=== PATIENT | male | born 1965 | race Caucasian/White ===

== ENCOUNTER 2018-04-16 23:29 | Emergency (ER) | payer OTHER ==
[2018-04-16] MEDS ORDERED: DOXYCYCLINE 100 MG CAP PO ONE (23:53)
[2018-04-16] MEDS ORDERED: TETANUS & DIPHTHERIA TOX,ADULT 0.5 ML VIAL ONE (23:54)
[2018-04-16] MEDS ORDERED: SMZ./TMP. 800/160 MG TABLET ONE (23:56)
--- NOTE | 2018-04-16 23:56 | ER ---
Nurse's Notes [facility] Name: Silvestre Jha Age: 53 yrs Sex: Male : 1965 Arrival Date: 04/16/2018 Time: 23:33 Bed 20 Private MD: Diagnosis: Cellulitis of left lower limb-Left Ankle Presentation: 04/16 23:42 Presenting complaint: Patient states: I was fishing this week and a fish jumped in the tl2 boat and the hook scraped my left foot. I noticed some redness and swelling yesterday. Denies fever. Slight redness on lateral side of left ankle and mild swelling noted. Transition of care: patient was not received from another setting of care. Onset of symptoms was April 15, 2018 at 00:00. Risk Assessment: Do you want to hurt yourself or someone else?. Risk Assessment: Do you want to hurt yourself or someone else? Patient reports no desire to harm self or others. Initial Sepsis Screen: Does the patient meet any 2 criteria? No. Patient's initial sepsis screen is negative. Does the patient have a suspected source of infection? No. Patient's initial sepsis screen is negative. Care prior to arrival: None. 23:42 Method Of Arrival: Ambulatory tl2 23:42 Acuity: LAURA 3 tl2 Historical: - Allergies: 23:44 No Known Allergies; tl2 - Home Meds: 23:44 Synthroid Oral [Active]; tl2 - PMHx: 23:44 Hypothyroidism; tl2 - PSHx: 23:44 Thyroidectomy; tl2 - Immunization history:: Adult Immunizations up to date, Last tetanus immunization: unknown. - Social history:: Smoking status: Patient/guardian denies using tobacco. - Ebola Screening: : No symptoms or risks identified at this time. Screenin:45 Abuse screen: Denies threats or abuse. Nutritional screening: No deficits noted. jd3 Tuberculosis screening: No symptoms or risk factors identified. Fall Risk Ambulatory Aid- None/Bed Rest/Nurse Assist (0 pts). Gait- Normal/Bed Rest/Wheelchair (0 pts) Mental Status- Oriented to own ability (0 pts). Total Stinson Fall Scale indicates No Risk (0-24 pts). Assessment: 23:43 General: Appears in no apparent distress. uncomfortable, Behavior is calm, cooperative, jd3 appropriate for age. Pain: Complains of pain in left ankle Quality of pain is described as aching. Neuro: Level of Consciousness is awake, alert, obeys commands, Oriented to person, place, time, situation, Appropriate for age. Cardiovascular: Capillary refill < 3 seconds Patient's skin is warm and dry. Respiratory: Airway is patent Respiratory effort is even, unlabored, Respiratory pattern is regular, symmetrical. GI: No signs and/or symptoms were reported involving the gastrointestinal system. Abdomen is round non-distended. : No signs and/or symptoms were reported regarding the genitourinary system. EENT: No signs and/or symptoms were reported regarding the EENT system. Derm: Skin is intact, Skin is dry, Skin is normal, Skin temperature is warm. Musculoskeletal: Circulation, motion, and sensation intact. Range of motion: intact in all extremities. Injury Description: Abrasion sustained to left ankle is scabbed. 04/17 00:09 Reassessment: Patient appears in no apparent distress at this time. Patient and/or jd3 family updated on plan of care and expected duration. Pain level reassessed. Patient is alert, oriented x 3, equal unlabored respirations, skin warm/dry/pink. Vital Signs: 04/16 23:44 BP 166 / 109; Pulse 81; Resp 18; Temp 98; Pulse Ox 97% on R/A; Weight 117.93 kg; Height tl2 6 ft. 1 in. (185.42 cm); Pain 7/10; 23:44 Body Mass Index 34.30 (117.93 kg, 185.42 cm) tl2 ED Course: 23:33 Patient arrived in ED. am2 23:38 Harry Mooney, JONY is Primary Nurse. jd3 23:39 Christo Duffy PA is PHCP. cp 23:39 Cosmo Parker MD is Attending Physician. cp 23:44 Triage completed. tl2 23:45 Patient has correct armband on for positive identification. Bed in low position. Call jd3 light in reach. Side rails up X 1. 23:45 Arm band placed on. jd3 04/17 00:09 No provider procedures requiring assistance completed. Patient did not have IV access jd3 during this emergency room visit. Administered Medications: 04/16 23:54 Drug: Doxycycline 100 mg Route: PO; jd3 04/17 00:10 Follow up: Response: No adverse reaction d3 04/16 23:54 Drug: Tetanus-Diphtheria Toxoid Adult 0.5 ml {[employer] Specialist: [employer]. Exp: jd3 04/23/2020. Lot #: [id number]. } Route: IM; Site: left deltoid; 04/17 00:10 Follow up: Response: No adverse reaction jd3 04/16 23:54 Drug: Bactrim (160 mg-800 mg (DS) 1 tablet Route: PO; jd3 04/17 00:10 Follow up: Response: No adverse reaction jd3 Outcome: 04/16 23:55 Discharge ordered by MD. ogden 04/17 00:09 Discharged to home ambulatory. jd3 Condition: stable Discharge instructions given to patient, Instructed on discharge instructions, follow up and referral plans. medication usage, Demonstrated understanding of instructions, follow-up care, medications, Prescriptions given X 2. 00:10 Patient left the ED. jd3 Signatures: Christo Duffy PA PA cp Knox, Taylor, RN RN tl2 Deanna Alonso Jonathon, RN RN jd3
--- NOTE | 2018-04-16 23:56 | EDPHYS ---
Physician Documentation [facility] Name: Silvestre Jha Age: 53 yrs Sex: Male : 1965 Arrival Date: 04/16/2018 Time: 23:33 Bed 20 Private MD: ED Physician Cosmo Parker HPI: 04/16 23:45 This 53 yrs old Male presents to ER via Ambulatory with complaints of Ankle cp Injury. 23:45 The patient presents with swelling, tenderness, erythema. The complaints affect the cp lateral aspect left ankle. Onset: The symptoms/episode began/occurred today. Context: patient reports he was fishing 2 days ago when hooked fish struck left ankle. Patient reports noticing redness today and increased swelling over past 2 days. Historical: - Allergies: 23:44 No Known Allergies; tl2 - Home Meds: 23:44 Synthroid Oral [Active]; tl2 - PMHx: 23:44 Hypothyroidism; tl2 - PSHx: 23:44 Thyroidectomy; tl2 - Immunization history:: Adult Immunizations up to date, Last tetanus immunization: unknown. - Social history:: Smoking status: Patient/guardian denies using tobacco. - Ebola Screening: : No symptoms or risks identified at this time. ROS: 23:49 Eyes: Negative for injury, pain, redness, and discharge. cp 23:49 Constitutional: Negative for body aches, chills, fever, poor PO intake. 23:49 Cardiovascular: Negative for chest pain, palpitations. 23:49 Respiratory: Negative for cough, shortness of breath, wheezing. 23:49 Abdomen/GI: Negative for abdominal pain, nausea, vomiting, and diarrhea. 23:49 Skin: Positive for erythema, swelling, of the lateral aspect left ankle. 23:49 All other systems are negative. Exam: 23:50 Head/Face: Normocephalic, atraumatic. cp 23:50 Constitutional: The patient appears in no acute distress, alert, awake, non-toxic, well developed, well nourished. 23:50 Eyes: Periorbital structures: appear normal, Conjunctiva: normal, no exudate, no injection, Lids and lashes: appear normal, bilaterally. 23:50 ENT: External ear(s): are unremarkable, Nose: is normal, Mouth: is normal, Posterior pharynx: is normal, airway is patent. 23:50 Chest/axilla: Inspection: normal. 23:50 Cardiovascular: Rate: normal, Rhythm: regular. 23:50 Respiratory: the patient does not display signs of respiratory distress, Respirations: normal, no use of accessory muscles, no retractions, no splinting, no tachypnea, labored breathing, is not present. 23:50 Abdomen/GI: Exam negative for discomfort, distension, guarding, Inspection: abdomen appears normal. 23:50 Skin: cellulitis, that is mild, well demarcated, on the lateral aspect left ankle. Vital Signs: 23:44 BP 166 / 109; Pulse 81; Resp 18; Temp 98; Pulse Ox 97% on R/A; Weight 117.93 kg; Height tl2 6 ft. 1 in. (185.42 cm); Pain 7/10; 23:44 Body Mass Index 34.30 (117.93 kg, 185.42 cm) tl2 MDM: 23:39 Patient medically screened. cp 23:45 Differential diagnosis: cellulitis, abscess. cp 23:55 Data reviewed: vital signs, nurses notes, and as a result, I will discharge patient. cp Administered Medications: 23:54 Drug: Doxycycline 100 mg Route: PO; jd3 04/17 00:10 Follow up: Response: No adverse reaction jd3 04/16 23:54 Drug: Tetanus-Diphtheria Toxoid Adult 0.5 ml {[employer] Helper: [employer]. Exp: jd3 04/23/2020. Lot #: [id number]. } Route: IM; Site: left deltoid; 04/17 00:10 Follow up: Response: No adverse reaction jd3 04/16 23:54 Drug: Bactrim (160 mg-800 mg (DS) 1 tablet Route: PO; jd3 04/17 00:10 Follow up: Response: No adverse reaction jd3 Disposition: 23:20 Co-signature as Attending Physician, Cosmo Parker MD Available for consultation at ps1 all times. . Disposition: 04/16/18 23:55 Discharged to Home. Impression: Cellulitis of left lower limb - Left Ankle. - Condition is Stable. - Discharge Instructions: Cellulitis, Adult. - Prescriptions for Bactrim DS 800- 160 mg Oral Tablet - take 1 tablet by ORAL route every 12 hours for 10 days; 20 tablet. Doxycycline Monohydrate 100 mg Oral Tablet - take 1 tablet by ORAL route every 12 hours for 10 days; 20 tablet. - Medication Reconciliation Form, Thank You Letter, Antibiotic Education, Prescription Opioid Use form. - Follow up: Private Physician; When: 48 Hours; Reason: Recheck today's complaints. - Problem is new. - Symptoms have improved. Signatures: Christo Duffy PA PA cp Knox, Taylor RN RN tl2 Harry Mooney RN RN jd3 Cosmo Parker MD MD ps1 Corrections: (The following items were deleted from the chart) 00:10 04/16 23:55 04/16/2018 23:55 Discharged to Home. Impression: Cellulitis of left lower jd3 limb - Left Ankle. Condition is Stable. Forms are Medication Reconciliation Form, Thank You Letter, Antibiotic Education, Prescription Opioid Use. Follow up: Private Physician; When: 48 Hours; Reason: Recheck today's complaints. Problem is new. Symptoms have improved. cp
== END 2018-04-17 00:10 | disposition home or self-care (01) ==
LOC: ER 23:29
DX: L03.116 Cellulitis of left lower limb (principal); E03.9 Hypothyroidism, unspecified; Z23 Encounter for immunization
CPT/HCPCS: 90714; 99283